=== PATIENT | female | born 1985 | race Caucasian/White ===

== ENCOUNTER 2020-03-31 10:57 | Emergency (ER) | payer OTHER ==
[~2020-03-31] VITALS: Ht 175.3 cm; Wt 68.2 kg
[~2020-03-31 10:57] MED LIST: HUMALOG 30100 UNITS/ SC; INSTA-GLUCOSE31 GM PO; LANTUS SOL100 UNIT/1; PEPCID20 MG PO; ZOFRAN4 MG PO
[2020-03-31 11:06] VITALS: Ht 175.3 cm; Wt 68.2 kg
[2020-03-31] MEDS ORDERED: NOVOLOG100 UNIT/1 (11:08)
[2020-03-31 11:34] LABS: BASOPHILS 0.4 % (0-2); EOSINOPHILS 2.9 % (0-7); HEMATOCRIT 42.9 % (36.0-48.0); HEMOGLOBIN 13.8 g/dL (12-16); MCH 31.4 pg (26.0-34.0); MCHC 32.2 g/dL (31.0-37.0); MCV 97.5 fL (80.0-100.0); MEAN PLATELET VOLUME 10.4 fL (7.4-10.4); NEUTROPHILS 54.7 % (40-80); RDW 12.3 % (11.5-14.5); WBC 8.4 10x3/uL (4.8-10.8)
[2020-03-31 11:39] LABS: CALC OSMOLALITY 279 mosm/kg (275-300); CALCIUM 8.9 mg/dL (8.5-10.1); CARBON DIOXIDE 25.5 mmol/L (21.0-32.0); CHLORIDE - SERUM 106 mmol/L (98-107); CREATININE - SERUM 0.8 mg/dL (0.6-1.3); GLUCOSE 65 mg/dL (74-106); PLATELET COUNT 373 10x3/uL (130-400); POTASSIUM - SERUM 3.8 mmol/L (3.5-5.1); SODIUM 141 mmol/L (136-145); UREA NITROGEN 15 mg/dL (7-18); eGFR NON AFRICAN AMERICAN 86 mL/min (90-120)
[2020-03-31 11:45] LABS: ALBUMIN 3.3 g/dL (3.4-5.0); ALKALINE PHOSPHATASE 85 U/L (30-120); ALT (SGPT) 29 U/L (10-68); BILIRUBIN - TOTAL 1.03 mg/dL (0.2-1.3); PROTEIN - SERUM 7.5 g/dL (6.4-8.2)
[2020-03-31 11:51] LABS: HCG SERUM NEGATIVE (NEGATIVE)
[2020-03-31 11:56] LABS: GLUCOSE NEGATIVE (NEGATIVE); KETONE NEGATIVE (NEGATIVE); NITRITE NEGATIVE (NEGATIVE); SPECIFIC GRAVITY 1.015 (1.005-1.020)
[2020-03-31 11:57] LABS: BACTERIA MODERATE /hpf (NEGATIVE); BILIRUBIN NEGATIVE (NEGATIVE); RED CELLS - URINE 0-5 /hpf (0-5); UROBILINOGEN NORMAL (NORMAL); WHITE CELLS - URINE 0-5 /hpf (NEGATIVE)
[2020-03-31] MEDS ORDERED: MACROBID100 MG PO (13:46)
[2020-03-31] MEDS ORDERED: BENTYL 20 MG TA20 MG PO (13:46)
[2020-03-31] MEDS ORDERED: ZOFRAN ODT4 MG/UDTAB PO (13:46)
[2020-03-31 14:02] VITALS: BP 134/78
== END 2020-03-31 14:06 | disposition home or self-care (01) ==
LOC: D.ER 10:57
PROVIDERS: Family Medicine
DX: R10.9 Unspecified abdominal pain (principal); R10.2 Pelvic and perineal pain; R31.9 Hematuria, unspecified; E11.649 Type 2 diabetes mellitus with hypoglycemia without coma; Z79.4 Long term (current) use of insulin; N93.9 Abnormal uterine and vaginal bleeding, unspecified

== ENCOUNTER 2020-04-15 11:30 | Inpatient (IN) | payer OTHER ==
[~2020-04-15] VITALS: Ht 175.3 cm; Wt 63.0 kg
[2020-04-15] VITALS (12 sets, daily range): BP systolic 101–126; BP diastolic 55–82; BMI 20.5
[~2020-04-15 11:30] MED LIST changes: +BENTYL 20 MG TA20 MG PO; +MACROBID100 MG PO; +NOVOLOG100 UNIT/1; +ZOFRAN ODT4 MG/UDTAB PO
[2020-04-15] MEDS ORDERED: NOVOLOG100 UNIT/1 SC (11:42)
--- NOTE | 2020-04-15 12:20 | NUR ---
FSBS= HIGH, DR MARIA NOTIFIED
--- NOTE | 2020-04-15 12:40 | NUR ---
PT D/C'D INSULIN PUMP
--- NOTE | 2020-04-15 12:54 | NUR ---
LFA IV INFILTRATED D/C'D INTACT
[2020-04-15 13:11] LABS: HCG URINE NEGATIVE (NEGATIVE)
[2020-04-15 13:12] LABS: BASOPHILS 0.1 % (0-2); EOSINOPHILS 0.1 % (0-7); HEMATOCRIT 43.6 % (36.0-48.0); IMMATURE GRANULOCYTES 0.2 % (0-5); LYMPHOCYTES 9.1 % (15-50); MCH 31.4 pg (26.0-34.0); MCHC 32.1 g/dL (31.0-37.0); MCV 97.8 fL (80.0-100.0); MEAN PLATELET VOLUME 11.6 fL (7.4-10.4); NEUTROPHILS 85.5 % (40-80); RBC 4.46 10x6/uL (4.00-5.40); RDW 12.1 % (11.5-14.5)
[2020-04-15 13:13] LABS: PLATELET COUNT 275 10x3/uL (130-400)
[2020-04-15 13:21] LABS: ALBUMIN 3.3 g/dL (3.4-5.0); ALKALINE PHOSPHATASE 88 U/L (30-120); ALT (SGPT) 30 U/L (10-68); AMYLASE - SERUM 55 U/L (25-115); BILIRUBIN - TOTAL 1.49 mg/dL (0.2-1.3); CARBON DIOXIDE 17.5 mmol/L (21.0-32.0); CHLORIDE - SERUM 96 mmol/L (98-107); CREATININE - SERUM 1.5 mg/dL (0.6-1.3); LIPASE 51 U/L (73-393); POTASSIUM - SERUM 4.7 mmol/L (3.5-5.1); PROTEIN - SERUM 7.4 g/dL (6.4-8.2); SODIUM 130 mmol/L (136-145); UREA NITROGEN 32 mg/dL (7-18); eGFR NON AFRICAN AMERICAN 42 mL/min (90-120)
[2020-04-15 13:24] LABS: CALC OSMOLALITY 290 mosm/kg (275-300); GLUCOSE 510 mg/dL (74-106); TROPONIN-I < 0.017 ng/mL (0.000-0.060)
--- NOTE | 2020-04-15 13:26 | NUR ---
CRITICAL LAB: FSBS= 510 MG/DL, DR MARIA NOTIFIED
[2020-04-15 13:28] LABS: BILIRUBIN NEGATIVE (NEGATIVE); GLUCOSE 1000 mg/dL (NEGATIVE); KETONE LARGE mg/dL (NEGATIVE); NITRITE NEGATIVE (NEGATIVE); SPECIFIC GRAVITY 1.015 (1.005-1.020); UROBILINOGEN NORMAL (NORMAL)
[2020-04-15 13:29] LABS: BACTERIA FEW /hpf (NEGATIVE); EPITHELIAL CELLS 0-5 /hpf (0-5); RED CELLS - URINE 0-5 /hpf (0-5); WHITE CELLS - URINE 0-5 /hpf (NEGATIVE)
--- NOTE | 2020-04-15 13:57 | NUR ---
REPORT TO FRANCIE MORTENSEN
--- NOTE | 2020-04-15 14:02 | NUR ---
FSBS= 286 MG/DL
--- NOTE | 2020-04-15 14:15 | NUR ---
TO ROOM #2308 CONDITION STABLE. NS X 2 LITERS INFUSING @ 999 ML/HR EACH, FLAGYL 500MG INFUSING @ 100 ML/HR AND INSULIN GTT INFUSING VIA PUMP @ 13.5 UNITS/HR
--- NOTE | 2020-04-15 16:47 | NUR ---
PT REQUESTING FOOD. INSTRUCT NEED TO WAIT FOR MD TO SEE PT AND ON INSULIN GTT.
[2020-04-15 17:45] LABS: ANION GAP 13.1 mmol/L (8-16); CALCIUM 7.8 mg/dL (8.5-10.1); CARBON DIOXIDE 21.2 mmol/L (21.0-32.0); CREATININE - SERUM 1.1 mg/dL (0.6-1.3); POTASSIUM - SERUM 3.3 mmol/L (3.5-5.1)
--- NOTE | 2020-04-15 19:00 | NUR ---
REPORT RECEVIED FROM THE OFF GOING RN. SEE ASSESSMENT IN THE PTS FLOW SHEET. PT VSS. PT VOIDED IN THE BEDSIDE COMMONDE. PT DENIES NEEDS AT THIS TIME. CALL LIGHT IN REACH. WILL CONT POC.
[2020-04-15 21:15] LABS: CALCIUM 7.3 mg/dL (8.5-10.1); CARBON DIOXIDE 20.4 mmol/L (21.0-32.0); CREATININE - SERUM 1.1 mg/dL (0.6-1.3)
--- NOTE | 2020-04-15 21:17 | NUR ---
VISITOR IN THE PTS ROOM LYING IN THE BED WITH THE PT. VISITOR HAD NO PPE ON. I EXPLAINED OUR VISITATION HOURS AND THAT HE NEEDS TO WASH HIS HANDS AND DON PPE. VISITOR WASHED HIS HANDS AND DONED PROPER PPE'S.
[2020-04-15 21:18] LABS: POTASSIUM - SERUM 4.4 mmol/L (3.5-5.1)
--- NOTE | 2020-04-15 21:31 | NUR ---
WHENEVER I ATTEMPTED TO HANG THE D51/2 NS WITH 20MEQ K, PT REFUSED AND STATED THAT SHE PREFERS PO BECAUSE IV K "ALBA". SHE ALSO C/O SHOULDER PAIN. DR JASSO CALLED UPDATED ON THIS NEW INFORMATION. SEE ORDERS.
--- NOTE | 2020-04-15 23:00 | NUR ---
PT VOIDED CLEAR, YELLOW URINE IN THE BEDSIDE COMMODE. NO ISSUES. VSS. WILL CONT POC.
[2020-04-15 23:25] LABS: ANION GAP 11.8 mmol/L (8-16); CALCIUM 7.3 mg/dL (8.5-10.1); CARBON DIOXIDE 20.8 mmol/L (21.0-32.0); CREATININE - SERUM 1.1 mg/dL (0.6-1.3)
[2020-04-15 23:27] LABS: POTASSIUM - SERUM 3.6 mmol/L (3.5-5.1)
[2020-04-16] VITALS (23 sets, daily range): BP systolic 114–155; BP diastolic 60–89; Ht 175.3 cm; Wt 63.0 kg
--- NOTE | 2020-04-16 01:37 | NUR ---
PT RESTING IN BED WITH NO ISSEUS. VSS. WILL CONT POC.
[2020-04-16 02:08] LABS: ALBUMIN 2.2 g/dL (3.4-5.0); ANION GAP 13.3 mmol/L (8-16); BILIRUBIN - TOTAL 0.95 mg/dL (0.2-1.3); CALCIUM 7.1 mg/dL (8.5-10.1); CARBON DIOXIDE 19.6 mmol/L (21.0-32.0); POTASSIUM - SERUM 3.9 mmol/L (3.5-5.1); PROTEIN - SERUM 5.1 g/dL (6.4-8.2)
--- NOTE | 2020-04-16 04:28 | NUR ---
PT RESTING WITH HER EYES CLOSED WITH NO S/SX OF DISTRESS/DISCOMFORT NOTED. CALL LIGHT IN REACH. WILL CONT POC.
[2020-04-16 05:59] LABS: ALBUMIN 2.5 g/dL (3.4-5.0); BILIRUBIN - TOTAL 1.24 mg/dL (0.2-1.3); CALCIUM 7.6 mg/dL (8.5-10.1); CREATININE - SERUM 1.1 mg/dL (0.6-1.3); PROTEIN - SERUM 5.8 g/dL (6.4-8.2)
[2020-04-16 06:06] LABS: ANION GAP 18.4 mmol/L (8-16); CARBON DIOXIDE 14.1 mmol/L (21.0-32.0); POTASSIUM - SERUM 4.5 mmol/L (3.5-5.1)
--- NOTE | 2020-04-16 06:22 | NUR ---
dr russell notified about glucose. give 20 units and he will adjust medication once he rounds this am.
--- NOTE | 2020-04-16 09:06 | HP ---
PATIENT: STEFAN BORREGO MEDICAL RECORD: [id number] ACCOUNT: [id number] LOCATION:[facility] : 81 ADMISSION DATE: 04/15/20 PCP: No PCP HISTORY AND PHYSICAL EXAMINATION DATE OF ADMISSION: 04/15/2020 CHIEF COMPLAINT: "Feeling bad." HISTORY OF PRESENT ILLNESS: This is a 34-year-old white female with type 1 diabetes diagnosed approximately 17 years ago. She recently established care with Dr. Corbett's clinic. 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 She has been admitted to [facility] in December with DKA. At that time, she had an EGD done by Dr. Kruse showing grade III esophagitis and reflux. She states that she was seen in Dr. Kruse's clinic for followup of this just a day or 2 ago and she was called early this morning and was told that she had Clostridium difficile infection and get a prescription for antibiotics was called in to [place] [facility]. She has not gone to pick that up. She went to the walk-in clinic this morning off [facility], states she was just feeling bad. Her blood sugar was high. I am not sure what testing was done out there, but she was sent to [place] ED. Her blood sugar was over 500. Serum ketones were positive and she was admitted for DKA to the ICU. She was admitted to the ICU and placed under standard protocol for DKA. PAST MEDICAL HISTORY: Type 1 diabetes with history of DKA. She is on an insulin pump. She has lived in the [place] area years ago moved off to [place] where she was established with a primary care provider as well as dye room helper there and as mentioned above, she has recently initiated contact with Dr. Corbett's office. She has been referred to the local dye room helper's office; however, has not established there yet. Other medical history, grade III esophagitis from EGD in December by Dr. Kruse, and history of asthma. PAST SURGICAL HISTORY: Bilateral tubal ligation, cholecystectomy in 2013. [place] [address] Armstrong and EGD this year by Dr. Kruse showing the esophagitis. She states she also has had right shoulder surgery for torn rotator cuff just in the last month or 2 by a surgeon in [place]. HOME MEDICATIONS: Only insulin pump with NovoLog insulin. HABITS: She does smoke. Denies alcohol or drug use. FAMILY HISTORY: Mother had diabetes and ovarian cancer. A sister had ovarian cancer. ALLERGIES: REPORTEDLY TO ALEVE, NAPROXEN AND TYLENOL #3. REVIEW OF SYSTEMS: GENERAL: No major weight changes. HEENT: No particular sinus or allergy problems. RESPIRATORY: She is a long time smoker and has had frequent "bronchitis." CARDIAC: No history of heart trouble. GASTROINTESTINAL: Esophagitis and reflux as above. She was on pantoprazole, but reportedly finished that now with a history of Clostridium difficile, she was just told about yesterday. GENITOURINARY: No significant problems there. HISTORY AND PHYSICAL [id number] STEFAN BORREGO MUSCULOSKELETAL: She is having some pain in her right shoulder. NEUROLOGIC: No migraines. No seizure disorder. PSYCHIATRIC: Denies depression or melancholia. PHYSICAL EXAMINATION: VITAL SIGNS: Temperature 98.1, pulse 89, respirations 22, blood pressure 124/82, O2 sat 96%. GENERAL: She is awake and alert in ICU bed. She is hungry. SKIN: Warm and dry. HEENT: Grossly within normal limits. NECK: Supple. No JVD or bruit. HEART: Regular rate and rhythm. LUNGS: Clear. ABDOMEN: Soft. EXTREMITIES: She has a healed scar over her right shoulder consistent with a recent surgery. She has general tenderness in the shoulder joint. EXTREMITIES: Without edema. LABORATORY DATA: CBC showed a white count of 14,000, hemoglobin 14.0, hematocrit 43. Basic metabolic panel: Sodium 130, potassium 4.7, chloride 96, CO2 17.5, BUN 32, creatinine 1.5, glucose was 510, calcium 9.0. Total bilirubin was 1.49, other liver functions were all normal. Magnesium 2.0, lipase 51. Serum ketones were small. Urinalysis 2+ protein, large ketones, trace blood, few bacteria. Chest x-ray showed nothing acute. ASSESSMENT: 1. Diabetic ketoacidosis, type 1 diabetic. 2. Reportedly positive for Clostridium difficile. PLAN: She is admitted in the ICU for close monitoring and will be placed on the usual protocol for diabetes. We will start metronidazole for Clostridium difficile and get some records from Dr. Kruse's office tomorrow. Other tests or procedures as warranted. TRANSINT:[id number] Voice Confirmation ID: [id number] DOCUMENT ID: [id number] RANDAL JASSO MD at 0906 CC: [id number] DICTATION DATE: 04/15/204 GEOTECHNICAL INTERN: 04/16/20 0328 ADM IN [facility] [address] [id number]
[2020-04-16 09:16] LABS: ALBUMIN 2.4 g/dL (3.4-5.0); ANION GAP 17.5 mmol/L (8-16); BILIRUBIN - TOTAL 1.04 mg/dL (0.2-1.3); CALCIUM 7.5 mg/dL (8.5-10.1); CREATININE - SERUM 1.3 mg/dL (0.6-1.3); PROTEIN - SERUM 5.2 g/dL (6.4-8.2)
[2020-04-16 09:17] LABS: POTASSIUM - SERUM 3.5 mmol/L (3.5-5.1)
[2020-04-16 13:21] LABS: ALBUMIN 2.5 g/dL (3.4-5.0); ANION GAP 12.5 mmol/L (8-16); BILIRUBIN - TOTAL 0.74 mg/dL (0.2-1.3); CALCIUM 7.9 mg/dL (8.5-10.1); CREATININE - SERUM 1.3 mg/dL (0.6-1.3); POTASSIUM - SERUM 3.5 mmol/L (3.5-5.1); PROTEIN - SERUM 5.3 g/dL (6.4-8.2)
[2020-04-16 18:25] LABS: ALBUMIN 2.6 g/dL (3.4-5.0); ANION GAP 11.1 mmol/L (8-16); BILIRUBIN - TOTAL 0.46 mg/dL (0.2-1.3); CALCIUM 8.2 mg/dL (8.5-10.1); CARBON DIOXIDE 22.6 mmol/L (21.0-32.0); CREATININE - SERUM 1.1 mg/dL (0.6-1.3); POTASSIUM - SERUM 3.7 mmol/L (3.5-5.1)
--- NOTE | 2020-04-16 19:00 | NUR ---
REPORT RECEIVED. PT RESTING IN BED, AAOX4. NO ACUTE DISTRESS NOTED AT THIS TIME. ASSESSMENT COMPLETED, SEE FLOWSHEET. LEFT UPPER ARM MIDLINE INFUSING, SEE IV FLOWSHEET. WILL CONTINUE TO MONITOR.
[2020-04-16 20:56] LABS: ALBUMIN 2.4 g/dL (3.4-5.0); ANION GAP 11.1 mmol/L (8-16); BILIRUBIN - TOTAL 0.3 mg/dL (0.2-1.3); CARBON DIOXIDE 23.4 mmol/L (21.0-32.0); POTASSIUM - SERUM 3.5 mmol/L (3.5-5.1); PROTEIN - SERUM 5.5 g/dL (6.4-8.2)
--- NOTE | 2020-04-16 21:00 | NUR ---
PT RESTING IN BED, NO ACUTE DISTRESS NOTED.
--- NOTE | 2020-04-16 23:00 | NUR ---
REASSESSMENT COMPLETED, SEE FLOWSHEET.
[2020-04-17] VITALS (11 sets, daily range): BP systolic 124–154; BP diastolic 68–88
--- NOTE | 2020-04-17 01:00 | NUR ---
PT RESTING IN BED, NO ACUTE DISTRESS NOTED.
--- NOTE | 2020-04-17 03:00 | NUR ---
REASSESSMENT COMPLETED, SEE FLOWSHEET.
--- NOTE | 2020-04-17 05:00 | NUR ---
PT RESTING IN BED, NO ACUTE DISTRESS NOTED.
[2020-04-17 06:52] LABS: CALC OSMOLALITY 281 mosm/kg (275-300); CARBON DIOXIDE 21.6 mmol/L (21.0-32.0); CHLORIDE - SERUM 111 mmol/L (98-107); CREATININE - SERUM 0.7 mg/dL (0.6-1.3); GLUCOSE 115 mg/dL (74-106); POTASSIUM - SERUM 3.7 mmol/L (3.5-5.1); SODIUM 141 mmol/L (136-145); UREA NITROGEN 12 mg/dL (7-18); eGFR NON AFRICAN AMERICAN > 90 mL/min (90-120)
[2020-04-17 06:57] LABS: ALBUMIN 2.3 g/dL (3.4-5.0); ALKALINE PHOSPHATASE 57 U/L (30-120); ALT (SGPT) 20 U/L (10-68); BILIRUBIN - TOTAL 0.35 mg/dL (0.2-1.3); PROTEIN - SERUM 5.4 g/dL (6.4-8.2)
[2020-04-17 06:58] LABS: BASOPHILS 0.3 % (0-2); EOSINOPHILS 2.8 % (0-7); IMMATURE GRANULOCYTES 0.1 % (0-5); LYMPHOCYTES 34.8 % (15-50); MCH 31.1 pg (26.0-34.0); MCHC 33.1 g/dL (31.0-37.0); MEAN PLATELET VOLUME 10.4 fL (7.4-10.4); MONOCYTES 7.3 % (2-11); NEUTROPHILS 54.7 % (40-80); PLATELET COUNT 225 10x3/uL (130-400); RBC 3.57 10x6/uL (4.00-5.40); RDW 12.3 % (11.5-14.5)
--- NOTE | 2020-04-17 07:00 | NUR ---
ASSESSMENT PER FLOWSHEET. NO CO AT TIME.
[2020-04-17 07:06] LABS: HEMATOCRIT 33.5 % (36.0-48.0); HEMOGLOBIN 11.1 g/dL (12-16); MCV 93.8 fL (80.0-100.0); WBC 6.7 10x3/uL (4.8-10.8)
--- NOTE | 2020-04-17 09:56 | NUR ---
Nutrition follow-up: Pt remains in isolation for C.Diff Pt and pts friend in bed together at this time. Labs reviewed; Glucose under much better control Gap closed Diet advanced to consistent CHO Wt: 138# RDN following.
--- NOTE | 2020-04-17 11:00 | NUR ---
EATING LUNCH NO CO AT TIME.
--- NOTE | 2020-04-17 15:00 | NUR ---
SLEEPING NO DISTRESS NOTED.
--- NOTE | 2020-04-17 16:19 | MORECARE ---
CASE MANAGEMENT DISCHARGE SUMMARY PATIENT: STEFAN BORREGO UNIT: [id number] ADM DATE: 04/15/20 AGE: 34 : 81 SEX: F ROOM/BED: D.2308 AUTHOR: SENG,DOC PHYSICIAN: REFERRING PHYSICIAN: RANDAL JASSO MD DATE OF SERVICE: 04/17/20 Discharge Plan Patient Name: STEFAN BORREGO Facility: [facility]:[place] : 1985 Planned Disposition: Home Anticipated Discharge Date: Discharge Date: Expected LOS: Initial Reviewer: [email or web address] Initial Review Date: 04/15/2020 Generated: 04/17/20 5:19 pm Comments DCP- Discharge Planning Updated by [email or web address]: Kayleigh Slaughter on 04/17/20 3:[address] Patient Name: STEFAN BORREGO Admission Status: ER Accout number: [id number] Admission Date: 04-15-2020 : 1985 Admission Diagnosis:TYPE 1 DIABETES MELLITUS WITH KETOACIDOSIS WITHOUT COMA Attending: RANDAL JASSO Current LOS: 2 Anticipated DC Date: Planned Disposition: Home Primary Insurance: [employer] INS EXCHANGE Discharge Planning Comments: CM met with patient to complete initial dc planning assessment. CM educated patient on the CM role and verbal consent given by patient to complete assessment. Patient lives at home with family. Patient is independent. At discharge patient plans to return home and feels this is a safe discharge. CM discussed availability of home health, rehab services, and medical equipment. Patient states that she has an insulin pump but doesn't have a glucometer or a way to check sugars at home. Patient will have family to transport home. Patient denied known discharge needs at this time. CM will continue to follow and will assist as needed with dc plans/needs. School Health Aide: Kayleigh Slaughter DCPIA - Discharge Planning Initial Assessment Updated by [email or web address]: Kayleigh Slaughter on 04/17/20 4:17 pm * Is the patient Alert and Oriented? Yes * How many steps to enter\exit or inside your home? * [facility] * [facility] * Preadmission Environment Home with Family * ADLs Independent * Other Equipment insulin pump, * List name and contact numbers for known caregivers / representatives who currently or will assist patient after discharge: AMEYA WREN -BF- [phone] * Verbal permission to speak to the caregivers and representatives has been obtained from the patient. Yes * Community resources currently utilized None * Additional services required to return to the preadmission environment? No * Can the patient safely return to the preadmission environment? Yes * Has this patient been hospitalized within the prior 30 days at any hospital? No Patient Name: STEFAN BORREGO Page [id number] at 1619 All edits/amendments must be made on the electronic document DICTATION DATE: 04/17/201618 CIGARETTE MAKING MACHINE CATCHER: VASHTI 04/17/201618 RPT#: [id number] DC DATE: STATUS: ADM IN [facility] [address] [place] [address] END OF REPORT
--- NOTE | 2020-04-17 17:00 | NUR ---
REPORT GIVEN TO MAURICIO. MOVED TO ROOM 2106.
--- NOTE | 2020-04-17 17:47 | NUR ---
PT TO ROOM VIA WHEELCHAIR FROM ICU. NURSE ASSISTED TO SHOWER ON ARRIVAL.
--- NOTE | 2020-04-17 21:45 | NUR ---
INITIAL ROUNDS COMPLETED AT 1915 HRS. PT DENIED ANY DISCOMFORT. ASSESSMENT COMPLETED AT 1950 HRS. VSS. ALERT AND OREINTED TO PERSON, PLACE AND TIME. [place]; MIDLINE TO LAC SL. LUNGS CTA. PM FSBS 207. 8 UNITS HUMALOG GIVEN SUB-Q TO UPPER R ARM PER S/S. PM SNACK SERVED. PT CURRENTLY WATCHING TV. NO DISTESS NOTED. FRIEND AT BEDSIDE. CALL LIGHT WITHIN REACH.
--- NOTE | 2020-04-18 00:08 | NUR ---
PT STATES SHE FEELS HER BS IS LOW. FSBS 41. PT IMMEDIATELY ATE A ARMENIAN. APPLE JUICE WITH SUGAR ADDED GIVEN TO PT WELL 2 PUDDINGS AND 3 ICE CREAMS PER REQUEST. PT ALERT AND ORIENTED TO PERSON, PLACE AND TIME. WILL RECHECK IN 30 MINUTES.
[2020-04-18 00:30] VITALS: BP 163/88
--- NOTE | 2020-04-18 00:40 | NUR ---
BS NOW 158. PT STATES SHE FEELS MUCH IMPROVED.
--- NOTE | 2020-04-18 02:26 | NUR ---
PT RESTING WITH EYES CLOSED. RESP EVEN AND REGULAR. CALL LIGHT WITHIN REACH.
[2020-04-18 04:30] VITALS: BP 127/66
--- NOTE | 2020-04-18 04:37 | NUR ---
PT RESTING WITH EYES CLOSED. RESP EVEN AND REGULAR. BOYFRIEND AT BEDSIDE. CALL LIGHT WITHIN REACH.
--- NOTE | 2020-04-18 06:07 | NUR ---
VSS THROUGHUOT NIGHT. PT DENIED ANY DISCOMFORT. NEEDS MET; WILL CONTINUE TO MONITOR.
--- NOTE | 2020-04-18 07:00 | NUR ---
RECEIVED REPORT. ASSUMED CARE OF PATIENT. CALL LIGHT WITHIN REACH. PATIENT LYING IN BED, MALE PARTNER LYING IN BED WITH PATIENT. PATIENT DENIES ANY NEEDS THIS AM, ANTICIPATING DISCHARGE TODAY. RESP EVEN AND UNLABORED. NO DISTRESS. WHITE BOARD UPDATED, BEDSIDE SHIFT REPORT COMPLETED.
--- NOTE | 2020-04-18 08:20 | NUR ---
ORDERED LANTUS PEN FROM PHARMACY, UNABLE TO LOCATE PATIENT LANTUS PEN. PATIENT STATES THAT SHE DOES NOT WANT THE LANTUS INJECTION THIS AM IF IS GOING TO DISCHARGE HER BECAUSE SHE WILL NOT BE ABLE TO USE HER INSULIN PUMP UNTIL TOMORROW BECAUSE IT WILL CAUSE HYPOGLYCEMIA. PATIENT STATED SHE WOULD WAIT UNTIL AFTER SHE SEES THIS AM TO RECIEVE THE LANTUS INJECTION.
[2020-04-18 10:14] VITALS: BP 156/80
[2020-04-18] MEDS ORDERED: FLAGYL500 MG PO (10:19)
--- NOTE | 2020-04-18 10:50 | NUR ---
MIDLINE REMOVED FROM LEFT UPPER ARM. NO BLEEDING FROM SITE. CATHETER TIP INTACT. 2X2 GAUZE APPLIED AND SECURED WITH BANDAID X 2. PATIENT TOLERATED MIDLINE REMOVAL WELL.
--- NOTE | 2020-04-18 11:00 | NUR ---
DISCHARGE INSTRUCTIONS PROVIDED TO PATIENT. PATIENT VERBALZIED UNDERSTANDING OF ALL INSTRUCTIONS PROVIDED. PATIENT GIVEN HARD SCRIPTS FOR FLAGYL AND GLUCOMETER STRIPS. PATIENT HAD NO QUESTIONS FOR THIS TAKER OUT.
--- NOTE | 2020-04-18 11:05 | MORECARE ---
CASE MANAGEMENT DISCHARGE SUMMARY PATIENT: STEFAN BORREGO UNIT: [id number] ADM DATE: 04/15/20 AGE: 34 : 83 SEX: F ROOM/BED: D.3709 AUTHOR: SENG,DOC PHYSICIAN: REFERRING PHYSICIAN: RANDAL JASSO MD DATE OF SERVICE: 04/18/20 Discharge Plan Patient Name: STEFAN BORREGO Facility: [facility]:[place] : 1985 Planned Disposition: Home Anticipated Discharge Date: Discharge Date: Expected LOS: Initial Reviewer: [email or web address] Initial Review Date: 04/15/2020 Generated: 04/18/20 12:05 pm Comments DCP- Discharge Planning Updated by [email or web address]: Melani Schreiber on 04/18/20 10:[address] PATIENT DISCHARGING HOME TODAY, CM GOT HER A PERSCRIPTION FOR A GLUCOMETER, LANCETS, AND STRIPS FOR HER TO GET. NO OTHER NEEDS NOTED DCP- Discharge Planning Updated by [email or web address]: Kayleigh Slaughter on 04/17/20 3:[address] Patient Name: STEFAN BORREGO Admission Status: ER Accout number: [id number] Admission Date: 04-15-2020 : 1985 Admission Diagnosis:TYPE 1 DIABETES MELLITUS WITH KETOACIDOSIS WITHOUT COMA Attending: RANDAL JASSO Current LOS: 2 Anticipated DC Date: Planned Disposition: Home Primary Insurance: [employer] [facility] Discharge Planning Comments: CM met with patient to complete initial dc planning assessment. CM educated patient on the CM role and verbal consent given by patient to complete assessment. Patient lives at home with family. Patient is independent. At discharge patient plans to return home and feels this is a safe discharge. CM discussed availability of home health, rehab services, and medical equipment. Patient states that she has an insulin pump but doesn't have a glucometer or a way to check sugars at home. Patient will have family to transport home. Patient denied known discharge needs at this time. CM will continue to follow and will assist as needed with dc plans/needs. Tree And Shrub Worker: Kayleigh Slaughter DCPIA - Discharge Planning Initial Assessment Updated by [email or web address]: Kayleigh Slaughter on 04/17/20 4:17 pm * Is the patient Alert and Oriented? Yes * How many steps to enter\exit or inside your home? * [facility] * [facility] * Preadmission Environment Home with Family * ADLs Independent * Other Equipment insulin pump, * List name and contact numbers for known caregivers / representatives who currently or will assist patient after discharge: AMEYA WREN -BF- [phone] * Verbal permission to speak to the caregivers and representatives has been obtained from the patient. Yes * Community resources currently utilized None * Additional services required to return to the preadmission environment? No * Can the patient safely return to the preadmission environment? Yes * Has this patient been hospitalized within the prior 30 days at any hospital? No Last DP export: 04/17/20 3:20 p Patient Name: STEFAN BORREGO Page [id number] at 1105 All edits/amendments must be made on the electronic document DICTATION DATE: 04/18/201104 NEWSCAST PRODUCER: VASHTI 04/18/20 1105 RPT#: [id number] DC DATE: STATUS: ADM IN [facility] [address] [place] [address] END OF REPORT
--- NOTE | 2020-04-18 11:10 | NUR ---
PATIENT LEFT UNIT VIA WHEELCHAIR WITH ALL PERSONAL BELONGINGS. PATIENT IN STABLE CONDITION UPON LEAVING UNIT. NO DISTRESS.
--- NOTE | 2020-04-20 16:31 | MORECARE ---
CASE MANAGEMENT DISCHARGE SUMMARY PATIENT: STEFAN BORREGO UNIT: [id number] ADM DATE: 04/15/20 AGE: 34 : 81 SEX: F ROOM/BED: D.4416 AUTHOR: SENG,COLT PHYSICIAN: REFERRING PHYSICIAN: RANDAL JASSO MD DATE OF SERVICE: 04/20/20 Discharge Plan Patient Name: STEFAN BORREGO Facility: [facility]:[place] : 1985 Planned Disposition: Home Anticipated Discharge Date: Discharge Date: 04/18/2020 Expected LOS: 0 Initial Reviewer: [email or web address] Initial Review Date: 04/15/2020 Generated: 04/20/20 5:31 pm Comments DCP- Discharge Planning Updated by [email or web address]: Melani Schreiber on 04/18/20 10:[address] PATIENT DISCHARGING HOME TODAY, CM GOT HER A PERSCRIPTION FOR A GLUCOMETER, LANCETS, AND STRIPS FOR HER TO GET. NO OTHER NEEDS NOTED DCP- Discharge Planning Updated by [email or web address]: Kayleigh Slaughter on 04/17/20 3:[address] Patient Name: STEFAN BORREGO Admission Status: ER Accout number: [id number] Admission Date: 04-15-2020 : 1985 Admission Diagnosis:TYPE 1 DIABETES MELLITUS WITH KETOACIDOSIS WITHOUT COMA Attending: RANDAL JASSO Current LOS: 2 Anticipated DC Date: Planned Disposition: Home Primary Insurance: [facility] [employer] [facility] Discharge Planning Comments: CM met with patient to complete initial dc planning assessment. CM educated patient on the CM role and verbal consent given by patient to complete assessment. Patient lives at home with family. Patient is independent. At discharge patient plans to return home and feels this is a safe discharge. CM discussed availability of home health, rehab services, and medical equipment. Patient states that she has an insulin pump but doesn't have a glucometer or a way to check sugars at home. Patient will have family to transport home. Patient denied known discharge needs at this time. CM will continue to follow and will assist as needed with dc plans/needs. Child Care Team Lead: Kayleigh Slaughter DCPIA - Discharge Planning Initial Assessment Updated by [email or web address]: Kayleigh Slaughter on 04/17/20 4:17 pm * Is the patient Alert and Oriented? Yes * How many steps to enter\exit or inside your home? * [facility]CP [facility] * [facility] * Preadmission Environment Home with Family * ADLs Independent * Other Equipment insulin pump, * List name and contact numbers for known caregivers / representatives who currently or will assist patient after discharge: AMEYA WREN -BF- [phone] * Verbal permission to speak to the caregivers and representatives has been obtained from the patient. Yes * Community resources currently utilized None * Additional services required to return to the preadmission environment? No * Can the patient safely return to the preadmission environment? Yes * Has this patient been hospitalized within the prior 30 days at any hospital? No Last DP export: 04/18/20 10:05 a Patient Name: STEFAN BORREGO Page [phone] at 1631 All edits/amendments must be made on the electronic document DICTATION DATE: 04/20/20 1631 TRUCKMAN: VASHTI 04/20/20 1631 RPT#: [id number] DC DATE:04/18/20 STATUS: DIS IN [facility] [address] [place] [address] END OF REPORT
== END 2020-04-18 11:10 | disposition home or self-care (01) | DRG 638 ==
LOC: D.ER 11:30 → D.ICU 13:32 → D.M2 04-17 17:37
PROVIDERS: Family Medicine; ADMIT Family Medicine; ATTEND Family Medicine
PROC: 05HY33Z Insertion of Infusion Device into Upper Vein, Percutaneous Approach (ICD-10-PCS; principal; 2020-04-16)
DX: E10.10 Type 1 diabetes mellitus with ketoacidosis without coma (principal); A04.72 Enterocolitis due to Clostridium difficile, not specified as recurrent; F17.200 Nicotine dependence, unspecified, uncomplicated

== ENCOUNTER 2020-08-10 12:15 | Emergency (ER) | payer OTHER ==
[~2020-08-10] VITALS: Ht 175.3 cm; Wt 68.2 kg
[~2020-08-10 12:15] MED LIST changes: +FLAGYL500 MG PO; +NOVOLOG100 UNIT/1 SC
[2020-08-10 12:31] VITALS: Ht 175.3 cm; Wt 68.2 kg
[2020-08-10] MEDS ORDERED: [UNRECOGNIZED DRUG - REMARK] (12:32)
[2020-08-10] MEDS ORDERED: HUMULIN R100 UNIT/1 SC (12:33)
[2020-08-10 13:41] LABS: BASOPHILS 0.2 % (0-2); EOSINOPHILS 0.2 % (0-7); HEMATOCRIT 38.9 % (36.0-48.0); HEMOGLOBIN 13.3 g/dL (12-16); IMMATURE GRANULOCYTES 0.3 % (0-5); LYMPHOCYTES 8.9 % (15-50); MCH 31.5 pg (26.0-34.0); MCHC 34.2 g/dL (31.0-37.0); MCV 92.2 fL (80.0-100.0); MEAN PLATELET VOLUME 10.7 fL (7.4-10.4); MONOCYTES 5.9 % (2-11); NEUTROPHILS 84.5 % (40-80); PLATELET COUNT 248 10x3/uL (130-400); RBC 4.22 10x6/uL (4.00-5.40); RDW 11.6 % (11.5-14.5); WBC 17.2 10x3/uL (4.8-10.8)
[2020-08-10 13:44] LABS: ANION GAP 13.8 mmol/L (8-16); CALCIUM 8.5 mg/dL (8.5-10.1); CARBON DIOXIDE 23.9 mmol/L (21.0-32.0); CREATININE - SERUM 1.1 mg/dL (0.6-1.3); POTASSIUM - SERUM 3.7 mmol/L (3.5-5.1)
[2020-08-10 13:50] LABS: ALBUMIN 2.7 g/dL (3.4-5.0); BILIRUBIN - TOTAL 0.41 mg/dL (0.2-1.3); PROTEIN - SERUM 6.8 g/dL (6.4-8.2)
[2020-08-10] MEDS ORDERED: KEFLEX500 MG PO ×2 (14:49→15:29)
[2020-08-10 15:36] VITALS: BP 130/62
== END 2020-08-10 15:36 | disposition home or self-care (01) ==
LOC: D.ER 12:15
PROVIDERS: Family Medicine
DX: R53.81 Other malaise (principal); R52 Pain, unspecified; R53.83 Other fatigue; J02.9 Acute pharyngitis, unspecified; E11.9 Type 2 diabetes mellitus without complications

== ENCOUNTER 2021-01-14 19:54 | Observation (INO) | payer MEDICAID ==
[~2021-01-14] VITALS: Ht 165.1 cm; Wt 61.2 kg
[~2021-01-14 19:54] MED LIST changes: +HUMULIN R100 UNIT/1 SC; +KEFLEX500 MG PO; +[UNRECOGNIZED DRUG - REMARK]
[2021-01-14 20:47] LABS: BASOPHILS 0.4 % (0-2); EOSINOPHILS 1.8 % (0-7); HEMOGLOBIN 11.8 g/dL (12-16); IMMATURE GRANULOCYTES 0.1 % (0-5); LYMPHOCYTE ABS# 2.17 10x3/uL (1.18-3.74); MCHC 32.8 g/dL (31.0-37.0); MCV 94.5 fL (80.0-100.0); MEAN PLATELET VOLUME 10.1 fL (7.4-10.4); NEUTROPHIL ABS# 5.02 10x3/uL (1.56-6.13); NEUTROPHILS 64.7 % (40-80); PLATELET COUNT 247 10x3/uL (130-400); RBC 3.81 10x6/uL (4.00-5.40); RDW 12.5 % (11.5-14.5); WBC 7.8 10x3/uL (4.8-10.8)
[2021-01-14 20:49] LABS: BILIRUBIN NEGATIVE (NEGATIVE); KETONE SMALL mg/dL (NEGATIVE); NITRITE NEGATIVE (NEGATIVE); UROBILINOGEN NORMAL mg/dL (< 2)
[2021-01-14 20:51] LABS: HCG URINE NEGATIVE (NEGATIVE)
[2021-01-14 20:52] LABS: UDS - AMPHET NEGATIVE QUAL (NEGATIVE); UDS - BARB NEGATIVE QUAL (NEGATIVE); UDS - BENZO NEGATIVE QUAL (NEGATIVE); UDS - COCAINE NEGATIVE QUAL (NEGATIVE); UDS - OPIATE NEGATIVE QUAL (NEGATIVE); UDS - PCP NEGATIVE QUAL (NEGATIVE); UDS - THC NEGATIVE QUAL (NEGATIVE)
[2021-01-14 20:54] LABS: BACTERIA MODERATE HPF (NONE SEEN); SQUAMOUS EPITHELIAL 0-5 HPF (0-4); WHITE CELLS - URINE NONE SEEN HPF (0-4)
[2021-01-14 21:06] LABS: ALBUMIN 2.5 g/dL (3.4-5.0); ANION GAP 15.7 mmol/L (8-16); BILIRUBIN - TOTAL 0.96 mg/dL (0.2-1.3); CALCIUM 8.5 mg/dL (8.5-10.1); CARBON DIOXIDE 24.2 mmol/L (21.0-32.0); CREATININE - SERUM 1.3 mg/dL (0.6-1.3); POTASSIUM - SERUM 4.9 mmol/L (3.5-5.1); PROTEIN - SERUM 6.1 g/dL (6.4-8.2); THYROID STIMULATING HORMONE 0.81 uIU/mL (0.36-3.74)
[2021-01-15 00:04] VITALS: BP 145/64
--- NOTE | 2021-01-15 00:17 | NUR ---
PT FROM ER VIA WHEELCHAIR, NO DISTRESS NOTED, RESP EVEN AND UNLABORED, CL IN REACH, SR UP X 2.
[2021-01-15 01:21] VITALS: BP 145/64
[2021-01-15 05:00] VITALS: BP 118/78
[2021-01-15 07:54] VITALS: BP 126/78
--- NOTE | 2021-01-15 08:10 | MORECARE ---
CASE MANAGEMENT DISCHARGE SUMMARY PATIENT: STEFAN BORREGO UNIT: [id number] ADM DATE: 01/14/21 AGE: 35 : 83 SEX: F ROOM/BED: D.[facility] AUTHOR: COLT ELLSWORTH PHYSICIAN: REFERRING PHYSICIAN: SOFIE MISHRA MD DATE OF SERVICE: 01/15/21 Discharge Plan Patient Name: STEFAN BORREGO [facility] [facility] 1985 Planned Disposition: Home Anticipated Discharge Date: Discharge Date: Expected LOS: Initial Reviewer: [email or web address] Initial Review Date: 01/15/2021 Generated: 01/15/21 9:09 am DCPIA - Discharge Planning Initial Assessment Updated by [email or web address]: Whitney Berry on 01/15/21 8:08 am * Is the patient Alert and Oriented? Yes * PCP [facility]ron at [facility] * [facility] * Preadmission Environment Home with Family * ADLs Independent * Equipment Glucometer Other * Other Equipment Insulin Pump * List name and contact numbers for known caregivers / representatives who currently or will assist patient after discharge: Pranav Jeyson - [phone] * Verbal permission to speak to the caregivers and representatives has been obtained from the patient. Yes * Community resources currently utilized None * Additional services required to return to the preadmission environment? No * Can the patient safely return to the preadmission environment? Yes * Has this patient been hospitalized within the prior 30 days at any hospital? No Patient Name: STEFAN BORREGO Page [phone] at 0810 All edits/amendments must be made on the electronic document DICTATION DATE: 01/15/21809 METEOROLOGICAL TECHNICIAN: VASHTI 01/15/21809 RPT#: [id number] DC DATE: STATUS: ADM IN [facility] [address] [place] [address] END OF REPORT
--- NOTE | 2021-01-15 08:17 | MORECARE ---
CASE MANAGEMENT DISCHARGE SUMMARY PATIENT: STEFAN BORREGO UNIT: [id number] ADM DATE: 01/14/21 AGE: 35 : [birth year] SEX: F ROOM/BED: D.4127 AUTHOR: SENG,DOC PHYSICIAN: REFERRING PHYSICIAN: SOFIE MISHRA MD DATE OF SERVICE: 01/15/21 Discharge Plan Patient Name: STEFAN BORREGO Facility: [facility]:[place] : 1985 Planned Disposition: Home Anticipated Discharge Date: Discharge Date: Expected LOS: Initial Reviewer: [email or web address] Initial Review Date: 01/15/2021 Generated: 01/15/21 9:17 am Comments DCP- Discharge Planning Updated by [email or web address]: Whitney Berry on 01/15/21 7:[address] Patient Name: STEFAN BORREGO Admission Status: ER Accout number: [id number] Admission Date: 01-14-2021 : 1985 Admission Diagnosis: Attending: SOFIE MISHRA Current LOS: 1 Anticipated DC Date: Planned Disposition: Home Primary Insurance: MEDICAID [place] Discharge Planning Comments: CM met with patient to discuss discharge planning/needs. She states that she has an insulin pump that "keeps shutting off." States "I have plenty of insulin, but the pump is not working right. States she did not know she was getting low on her accucheck strips, but she does know how to get them and has the funds to get them. States "I am waiting on my doctor's office to open and the pharmacy to open." States she has all the resources she needs and does not need further assistance. States her fianc?e will take her home on discharge. CM will continue to follow and assist with discharge planning/needs. Drawing Tracer: Whitney Berry DCPIA - Discharge Planning Initial Assessment Updated by [email or web address]: Whitney Berry on 01/15/21 8:08 am * Is the patient Alert and Oriented? Yes * PCP Mariaelena Barron at [facility] * [facility] * Preadmission Environment Home with Family * ADLs Independent * Equipment Glucometer Other * Other Equipment Insulin Pump * List name and contact numbers for known caregivers / representatives who currently or will assist patient after discharge: Pranav Benítez - [phone] * Verbal permission to speak to the caregivers and representatives has been obtained from the patient. Yes * Community resources currently utilized None * Additional services required to return to the preadmission environment? No * Can the patient safely return to the preadmission environment? Yes * Has this patient been hospitalized within the prior 30 days at any hospital? No Last DP export: 01/15/21 7:10 a Patient Name: STEFAN BORREGO Page [id number] at 0817 All edits/amendments must be made on the electronic document DICTATION DATE: 01/15/21816 BIOLOGICAL PHOTOGRAPHER: VASHTI 01/15/21816 RPT#: [id number] DC DATE: STATUS: ADM IN [facility] [address] [place] [address] END OF REPORT
[2021-01-15 12:00] VITALS: BP 151/67
[2021-01-15 12:26] VITALS: Ht 165.1 cm; Wt 61.2 kg
[2021-01-15 15:00] VITALS: BP 125/66
--- NOTE | 2021-01-15 18:33 | NUR ---
DISCHARGED HOME AFTER EVALUATED BY DR TEJEDA. PERSONAL BELONGINGS WITH PT. WISHED WELL IV REMOVED WITH CATHETER INTACT.
--- NOTE | 2021-01-18 07:42 | MORECARE ---
CASE MANAGEMENT DISCHARGE SUMMARY PATIENT: STEFAN BORREGO UNIT: [id number] ADM DATE: 01/14/21 AGE: 35 : 81 SEX: F ROOM/BED: D.7978 AUTHOR: SENG,DOC PHYSICIAN: REFERRING PHYSICIAN: CARRI TEJEDA MD DATE OF SERVICE: 01/18/21 Discharge Plan Patient Name: STEFAN BORREGO Facility: [facility]:[place] : 1985 Planned Disposition: Home Anticipated Discharge Date: Discharge Date: 01/15/2021 Expected LOS: Initial Reviewer: [email or web address] Initial Review Date: 01/15/2021 Generated: 01/18/21 8:41 am DCP- Discharge Planning Updated by [email or web address]: Whitney Berry on 01/15/21 7:[address] Patient Name: STEFAN BORREGO Admission Status: ER Accout number: [id number] Admission Date: 01-14-2021 : 1985 Admission Diagnosis: Attending: SOFIE MISHRA Current LOS: 1 Anticipated DC Date: Planned Disposition: Home Primary Insurance: MEDICAID [place] Discharge Planning Comments: CM met with patient to discuss discharge planning/needs. She states that she has an insulin pump that "keeps shutting off." States "I have plenty of insulin, but the pump is not working right. States she did not know she was getting low on her accucheck strips, but she does know how to get them and has the funds to get them. States "I am waiting on my doctor's office to open and the pharmacy to open." States she has all the resources she needs and does not need further assistance. States her fianc?e will take her home on discharge. CM will continue to follow and assist with discharge planning/needs. Water Hydrant Installer: Whitney Berry DCPIA - Discharge Planning Initial Assessment Updated by [email or web address]: Whitney Berry on 01/15/21 8:08 am * Is the patient Alert and Oriented? Yes * PCP Mariaelena Barron at [facility] * [facility] * Preadmission Environment Home with Family * ADLs Independent * Equipment Glucometer Other * Other Equipment Insulin Pump * List name and contact numbers for known caregivers / representatives who currently or will assist patient after discharge: Pranav Benítez - [phone] * Verbal permission to speak to the caregivers and representatives has been obtained from the patient. Yes * Community resources currently utilized None * Additional services required to return to the preadmission environment? No * Can the patient safely return to the preadmission environment? Yes * Has this patient been hospitalized within the prior 30 days at any hospital? No Last DP export: 01/15/21 7:18 a Patient Name: STEFAN BORREGO Page [id number] at 0742 All edits/amendments must be made on the electronic document DICTATION DATE: 01/18/21741 MATERIAL PLANNING ANALYST: VASHTI 01/18/21741 RPT#: [id number] DC DATE:01/15/21 STATUS: DIS IN [facility] [address] [place] [address] END OF REPORT
== END 2021-01-15 19:17 | disposition home or self-care (01) ==
LOC: D.ER 19:54 → D.M2 21:32 → OBSVTIME 21:32 → D.EDHOLD 21:32 → D.M2 23:18
PROVIDERS: Family Medicine; ADMIT Emergency Medicine; ATTEND Emergency Medicine
DX: E10.65 Type 1 diabetes mellitus with hyperglycemia (principal); Z91.19 Patient's noncompliance with other medical treatment and regimen; Z79.4 Long term (current) use of insulin

== ENCOUNTER 2021-02-09 15:26 | Emergency (ER) | payer OTHER ==
[~2021-02-09] VITALS: Ht 165.1 cm; Wt 61.8 kg
[2021-02-09 15:31] VITALS: BP 179/93; Ht 165.1 cm; Wt 61.8 kg
[2021-02-09] MEDS ORDERED: PENICILLIN V P500 MG PO (15:38)
== END 2021-02-09 16:10 | disposition home or self-care (01) ==
LOC: D.ER 15:26
DX: K13.79 Other lesions of oral mucosa (principal); E11.9 Type 2 diabetes mellitus without complications; Z79.4 Long term (current) use of insulin

== ENCOUNTER 2021-03-07 20:10 | Emergency (ER) | payer OTHER ==
[~2021-03-07] VITALS: Ht 165.1 cm; Wt 65.9 kg
[~2021-03-07 20:10] MED LIST changes: +PENICILLIN V P500 MG PO
[2021-03-07 20:20] VITALS: BP 173/90; Ht 165.1 cm; Wt 65.9 kg
== END 2021-03-07 22:02 | disposition home or self-care (01) ==
LOC: D.ER 20:10
DX: S69.91XA Unspecified injury of right wrist, hand and finger(s), initial encounter (principal); R22.31 Localized swelling, mass and lump, right upper limb; E11.9 Type 2 diabetes mellitus without complications; Z79.4 Long term (current) use of insulin; W22.8XXA Striking against or struck by other objects, initial encounter; Y93.9 Activity, unspecified; Y92.9 Unspecified place or not applicable

== ENCOUNTER 2021-05-21 10:24 | Emergency (ER) | payer OTHER ==
[~2021-05-21] VITALS: Ht 165.1 cm; Wt 63.6 kg
[2021-05-21 10:25] VITALS: Ht 165.1 cm; Wt 63.6 kg
[2021-05-21 11:41] VITALS: BP 148/52
== END 2021-05-21 11:55 | disposition home or self-care (01) ==
LOC: D.ER 10:24
DX: E11.649 Type 2 diabetes mellitus with hypoglycemia without coma (principal); Z79.4 Long term (current) use of insulin

== ENCOUNTER 2021-05-23 06:09 | Inpatient (IN) | payer OTHER ==
[~2021-05-23] VITALS: Ht 165.1 cm; Wt 63.6 kg
[2021-05-23 06:59] LABS: ANION GAP 16.2 mmol/L (8-16); CALCIUM 8.5 mg/dL (8.5-10.1); CARBON DIOXIDE 21.7 mmol/L (21.0-32.0); CREATININE - SERUM 1.2 mg/dL (0.6-1.3); POTASSIUM - SERUM 3.9 mmol/L (3.5-5.1)
[2021-05-23 07:13] LABS: ALBUMIN 2.6 g/dL (3.4-5.0); BILIRUBIN - TOTAL 0.42 mg/dL (0.2-1.3); MAGNESIUM - SERUM 2.1 mg/dL (1.8-2.4); PROTEIN - SERUM 5.8 g/dL (6.4-8.2); THYROID STIMULATING HORMONE 1.35 uIU/mL (0.36-3.74)
[2021-05-23 07:59] LABS: HCG URINE NEGATIVE (NEGATIVE)
[2021-05-23 08:05] LABS: UDS - AMPHET NEGATIVE QUAL (NEGATIVE); UDS - BARB NEGATIVE QUAL (NEGATIVE); UDS - BENZO NEGATIVE QUAL (NEGATIVE); UDS - COCAINE NEGATIVE QUAL (NEGATIVE); UDS - OPIATE NEGATIVE QUAL (NEGATIVE); UDS - PCP NEGATIVE QUAL (NEGATIVE); UDS - THC NEGATIVE QUAL (NEGATIVE)
[2021-05-23 08:12] LABS: BILIRUBIN NEGATIVE (NEGATIVE); KETONE TRACE mg/dL (< 1+); NITRITE NEGATIVE (NEGATIVE); SQUAMOUS EPITHELIAL 1 HPF (0-4); UROBILINOGEN NORMAL mg/dL (< 2); WHITE CELLS - URINE 1 HPF (0-4)
[2021-05-23 08:21] LABS: BASOPHILS 1.1 % (0-2); EOSINOPHILS 1.1 % (0-7); HEMATOCRIT 37.9 % (36.0-48.0); HEMOGLOBIN 12.5 g/dL (12-16); LYMPHOCYTES 14.4 % (15-50); MCH 31.7 pg (26.0-34.0); MCHC 33.1 g/dL (31.0-37.0); MCV 95.7 fL (80.0-100.0); MEAN PLATELET VOLUME 8.3 fL (7.4-10.4); MONOCYTES 4.5 % (2-11); NEUTROPHILS 78.9 % (40-80); RBC 3.96 10x6/uL (4.00-5.40); RDW 12.1 % (11.5-14.5); WBC 12.4 10x3/uL (4.8-10.8)
[2021-05-23 08:26] LABS: PLATELET COUNT 315 10x3/uL (130-400)
--- NOTE | 2021-05-23 10:50 | NUR ---
CALLED REPORT TO JR MARMOLEJO ON MED II.
--- NOTE | 2021-05-23 11:19 | NUR ---
PATIENT ARRIVED TO UNIT FROM ED VIA WHEELCHAIR AND ADMITTED TO ROOM 2103 AT THIS TIME.
--- NOTE | 2021-05-23 11:22 | NUR ---
TOOK PATIENT TO THE FLOOR, PIV RUNNING FLUIDS IN LEFT AC, HANDED PATIENT OFF TO JR MARMOLEJO.
[2021-05-23] MEDS ORDERED: IBUPROFEN400 MG PO (12:02)
--- NOTE | 2021-05-23 12:29 | NUR ---
CALLED DIETARY AND SPOKE WITH SARAH, HE IS BRINGING PATIENT TRAY SOON HE CAN. THANKED SARAH.
--- NOTE | 2021-05-23 12:44 | NUR ---
PATIENT REPORTS AT [facility] IS THE PRESCRIBING MD OF INSULIN FOR HER INSULIN PUMP. PATIENT RECENTLY RELOCATED HERE FROM [place]. PATIENT HAD AN MEDICATION TECHNICIAN IN [place] THAT MANAGED HER DIABETES. PATIENT IS SCHEDULED TO SEE ON May AND WAS GOING TO REQUEST REFERRAL TO MEDICATION TECHNICIAN AT THAT TIME.
[2021-05-23 12:50] VITALS: BP 134/79; Ht 165.1 cm; Wt 63.6 kg
[2021-05-23 14:00] VITALS: BP 149/78
--- NOTE | 2021-05-23 18:03 | NUR ---
[facility], PAGED TO REQUEST MOTRIN FOR PAIN. PATIENT COMPLAINTS OF GENERALIZED PAIN.
--- NOTE | 2021-05-23 18:25 | NUR ---
NEW ORDER RECIEVED FOR MOTRIN 400MG Q6 PRN
[2021-05-23 20:28] VITALS: BP 156/71
--- NOTE | 2021-05-23 23:04 | NUR ---
Patient received lying in bed awake with TV on. Assessed at this time, lungs clear, respirations even and nonlabored. IV patent in right wrist infusing NS at 150 cc/hr. She complained of cramping all over earlier in shift and was given Advil 2 tabs po prn pain. Her FSBS are AC & HS. Able to walk to bathroom ad elsa.
[2021-05-24 01:40] VITALS: BP 144/75
[2021-05-24 06:20] VITALS: BP 138/84
[2021-05-24 06:28] LABS: BASOPHILS 0.8 % (0-2); EOSINOPHILS 3.6 % (0-7); HEMATOCRIT 33.7 % (36.0-48.0); HEMOGLOBIN 11.4 g/dL (12-16); LYMPHOCYTES 43.6 % (15-50); MCH 32.1 pg (26.0-34.0); MCHC 33.9 g/dL (31.0-37.0); MCV 94.7 fL (80.0-100.0); MONOCYTES 5.8 % (2-11); NEUTROPHILS 46.2 % (40-80); PLATELET COUNT 273 10x3/uL (130-400); RBC 3.56 10x6/uL (4.00-5.40)
[2021-05-24 06:35] LABS: ANION GAP 12.8 mmol/L (8-16); BILIRUBIN - TOTAL 0.3 mg/dL (0.2-1.3); CALCIUM 7.9 mg/dL (8.5-10.1); CARBON DIOXIDE 22.1 mmol/L (21.0-32.0); MAGNESIUM - SERUM 1.9 mg/dL (1.8-2.4); POTASSIUM - SERUM 3.9 mmol/L (3.5-5.1); PROTEIN - SERUM 5.2 g/dL (6.4-8.2)
--- NOTE | 2021-05-24 06:36 | NUR ---
I have reviewed this patient and I concur with the Shift Assessment completed by the Licensed Practical Nurse today this shift.
[2021-05-24 08:36] VITALS: BP 161/85
[2021-05-24 11:45] VITALS: BP 142/64
[2021-05-24] MEDS ORDERED: CYCLOBENZAPRINE10 MG PO (13:02)
[2021-05-24] MEDS ORDERED: LISINOPRIL10 MG PO (13:02)
[2021-05-24] MEDS ORDERED: HUMULIN R100 UNIT/1 SC (13:03)
[2021-05-24] MEDS ORDERED: LANTUS SOL100 UNIT/2 SC (13:03)
--- NOTE | 2021-05-24 18:29 | NUR ---
IV THERAPY REMOVED FROM RIGHT WRIST WITH TIP INTACT. DISCHARGE INSTRUCTIONS GIVEN. PT AND SO VERBALIZED UNDERSTANDING. VOICED UNDERSTANDING TO GET A FOLLOW UP WITH HER PCP AND WITH AN ENDICRINOLOGIST. VOICED UNDERSTANDING ABOUT MEDICATIONS. WHEELED OUT ER EXIT
== END 2021-05-24 18:34 | disposition home or self-care (01) | DRG 639 ==
LOC: D.ER 06:09 → D.EDHOLD 06:34 → D.M2 06:34
PROVIDERS: Emergency Medicine; Family Medicine; ADMIT Family Medicine; ATTEND Family Medicine
DX: E10.649 Type 1 diabetes mellitus with hypoglycemia without coma (principal); G89.29 Other chronic pain; M54.9 Dorsalgia, unspecified; Z79.4 Long term (current) use of insulin